=== PATIENT | male | born 1985 | race Caucasian/White ===

== ENCOUNTER → 2016-08-15 | Outpatient (CLI) | payer OTHER ==
--- NOTE | 2016-08-16 10:14 | CPEEG ---
[f rep st] ELECTROENCEPHALOGRAM DATE OF STUDY: 08/15/2016 INTERPRETATION: Normal EEG during wakefulness and drowsiness. There were no potentially epileptoge mey abnormalities present during the recording. REPORT: This EEG contains 10 Hz alpha to the posterior head regions. There was no abnormal activat ion at rest, during photic stimulation, or hyperventilation. The background activity was normal and symmetric. The patient intermittently became drowsy during the study. There was no abnormal activ ation during drowsiness or during times of arousal. /[id number]/MODL
== END ==
LOC: FCPNEURO 15:12
PROVIDERS: ATTEND Psychiatry & Neurology Neurology
DX: H53.9 Unspecified visual disturbance (principal)